=== PATIENT | male | born 1945 | race Caucasian/White ===

== ENCOUNTER 2019-12-26 15:15 | Observation (INO) ==
[2019-12-26 16:13] LABS: Basophils # 0.1 K/mcL (0.0-0.2); Basophils % 0.4 %; Eosinophils # 0.2 K/mcL (0.0-0.6); Eosinophils % 1.8 %; Hematocrit 46.5 % (37.5-50.1); Hemoglobin 15.4 g/dL (12.9-16.9); Immature Granulocytes % 0.4 % (0-4); Lymphocytes # 1.7 K/mcL (0.6-4.6); Lymphocytes % 12.8 %; Mean Corpuscular HGB Conc 33.1 g/dL (31.6-35.5); Mean Corpuscular Hemoglobin 29.6 pg (28.0-33.3); Mean Corpuscular Volume 89.3 fL (83.0-100.0); Mean Platelet Volume 9.9 fL (9.4-12.4); Monocytes # 0.7 K/mcL (0.0-1.3); Monocytes % 4.8 %; Neutrophils # 10.9 K/mcL (1.6-8.9); Platelet Count 181 K/mcL (140-400); Red Blood Count 5.21 M/mcL (4.19-5.50); Red Cell Distribution Width 13.6 % (11.5-14.5); Segmented Neutrophils % 79.8 %; White Blood Count 13.6 K/mcL (4.3-11.1)
[2019-12-26 16:24] LABS: Bilirubin,Urine Negative (Negative); Blood,Urine Small (Negative); Clarity,Urine Clear (Clear); Color,Urine Yellow (Yellow); Glucose,Urine (UA) Normal (Normal); Ketones,Urine Negative (Negative); Leukocyte Esterase,Urine Negative (Negative); Mucus,Urine Few per lpf (None-Few); Nitrite,Urine Negative (Negative); PH,Urine 5.5 pH Units (5.0-8.0); Protein,Urine 200 mg/dL (Neg-Trace); RBC,Urine 0-3 per hpf (0-3); Specific Gravity,Urine 1.023 (1.010-1.025); Squamous Epithelial Cell,Urine Few per hpf (None-Few); Urobilinogen,Urine Normal (Normal); WBC,Urine 0-3 per hpf (0-3)
[2019-12-26 16:35] LABS: Alanine Aminotransferase 13 Units/L (7-52); Albumin 4.2 g/dL (3.5-5.7); Albumin/Globulin Ratio 1.6 (1.1-2.2); Alkaline Phosphatase 145 Units/L (34-104); Aspartate Amino Transferase 18 Units/L (13-39); BUN/Creatinine Ratio 17 (6-26); Bilirubin,Direct 0.2 mg/dL (0.0-0.2); Bilirubin,Indirect 0.5 mg/dL (0.0-1.0); Bilirubin,Total 0.7 mg/dL (0.3-1.0); Blood Urea Nitrogen 23 mg/dL (8-23); Calcium 9.3 mg/dL (8.6-10.3); Carbon Dioxide 24 mEq/L (23-29); Chloride 108 mEq/L (98-107); Globulin 2.6 g/dL (2.4-3.5); Glucose 94 mg/dL (70-105); Osmolality,Calculated 295 (280-300); Potassium 4.3 mEq/L (3.5-5.1); Sodium 141 mEq/L (136-145); Total Protein 6.8 g/dL (6.4-8.9); eGFR For African Americans > 60 (> 60); eGFR For Non-African Americans 51 (> 60)
[2019-12-26 16:36] LABS: Troponin I < 0.03 ng/mL (< 0.04)
[2019-12-26] MEDS ORDERED: NON-FORMULARY MEDICATION 1 EACH EACH (Omega-3s/Dha/Epa/Fish Oil [Fish Oil 1,200 Mg Softgel PO SCH (21:00)
[2019-12-26] MEDS: carvediloL 6.25 MG TABLET PO SCH (21:05)
[2019-12-26] MEDS: Aspirin Enteric Coated 325 MG Tablet PO SCH (21:05)
[2019-12-27 04:25] LABS: INR 1.1; Prothrombin Time 12.4 Seconds (9.4-12.1)
[2019-12-27 04:43] LABS: Alanine Aminotransferase 13 Units/L (7-52); Albumin 3.9 g/dL (3.5-5.7); Albumin/Globulin Ratio 1.7 (1.1-2.2); Alkaline Phosphatase 129 Units/L (34-104); Aspartate Amino Transferase 24 Units/L (13-39); BUN/Creatinine Ratio 18 (6-26); Bilirubin,Total 0.7 mg/dL (0.3-1.0); Blood Urea Nitrogen 24 mg/dL (8-23); Calcium 8.8 mg/dL (8.6-10.3); Carbon Dioxide 24 mEq/L (23-29); Chloride 108 mEq/L (98-107); Chol/HDL Ratio 3.6 (0-4.9); Cholesterol 123 mg/dL (< 200); Globulin 2.3 g/dL (2.4-3.5); Glucose 105 mg/dL (70-105); HDL Cholesterol 34 mg/dL (40-59); LDL Cholesterol,Calculated 48 mg/dL (< 100); Osmolality,Calculated 294 (280-300); Potassium 4.1 mEq/L (3.5-5.1); Sodium 140 mEq/L (136-145); Total Protein 6.2 g/dL (6.4-8.9); Triglycerides 206 mg/dL (< 150); Troponin I < 0.03 ng/mL (< 0.04); eGFR For African Americans > 60 (> 60); eGFR For Non-African Americans 52 (> 60)
[2019-12-27] MEDS: *HR* Heparin 5,000 UNIT/ML VIAL SQ SCH ×3 (05:02→21:50)
[2019-12-27 07:06] LABS: Hematocrit 43.1 % (37.5-50.1); Hemoglobin 14.2 g/dL (12.9-16.9); Mean Corpuscular HGB Conc 32.9 g/dL (31.6-35.5); Mean Corpuscular Hemoglobin 30.3 pg (28.0-33.3); Mean Corpuscular Volume 91.9 fL (83.0-100.0); Mean Platelet Volume 9.8 fL (9.4-12.4); Platelet Count 162 K/mcL (140-400); Red Blood Count 4.69 M/mcL (4.19-5.50); Red Cell Distribution Width 13.9 % (11.5-14.5); White Blood Count 9.9 K/mcL (4.3-11.1)
[2019-12-27 07:58] LABS: Estimated Average Glucose 108 mg/dl
[2019-12-27] MEDS ORDERED: Aspirin 81 MG TAB.CHEW PO SCH (09:00)
[2019-12-27] MEDS ORDERED: Lisinopril-HCTZ 20-12.5mg TABLET PO SCH (09:00)
[2019-12-27] MEDS: Aspirin Enteric Coated 325 MG Tablet PO SCH (09:15)
[2019-12-27] MEDS: carvediloL 6.25 MG TABLET PO SCH ×2 (09:16→17:38)
[2019-12-27] MEDS: Niacin (24 HR) 500 MG TAB.ER.24H PO SCH (09:16)
[2019-12-27] MEDS ORDERED: Perflutren Lipid Microsphere 1.3 ML in 0.9 % Sodium Chloride 8.7 ML IVP PRN (10:44)
[2019-12-27 11:46] LABS: Thyroid Stimulating Hormone 0.629 mcIU/mL (0.340-5.600)
[2019-12-27 11:51] LABS: Prolactin 5.02 ng/mL (3.00-14.70)
[2019-12-27 11:56] LABS: Folate 9.5 ng/mL (3.0-16.0)
[2019-12-27] MEDS: Gabapentin 300 MG CAPSULE PO SCH ×2 (15:45→21:50)
[2019-12-27] MEDS ORDERED: Acetaminophen 325 MG TABLET PO ONE (20:07)
[2019-12-28] MEDS: *HR* Heparin 5,000 UNIT/ML VIAL SQ SCH (06:00)
[2019-12-28 07:07] LABS: Hematocrit 43.7 % (37.5-50.1); Hemoglobin 14.5 g/dL (12.9-16.9); Mean Corpuscular HGB Conc 33.2 g/dL (31.6-35.5); Mean Corpuscular Hemoglobin 30.6 pg (28.0-33.3); Mean Corpuscular Volume 92.2 fL (83.0-100.0); Mean Platelet Volume 10.2 fL (9.4-12.4); Platelet Count 151 K/mcL (140-400); Red Blood Count 4.74 M/mcL (4.19-5.50); Red Cell Distribution Width 13.9 % (11.5-14.5); White Blood Count 7.3 K/mcL (4.3-11.1)
[2019-12-28 07:25] LABS: BUN/Creatinine Ratio 18 (6-26); Blood Urea Nitrogen 23 mg/dL (8-23); Calcium 9.1 mg/dL (8.6-10.3); Carbon Dioxide 24 mEq/L (23-29); Chloride 106 mEq/L (98-107); Glucose 91 mg/dL (70-105); Osmolality,Calculated 293 (280-300); Potassium 3.8 mEq/L (3.5-5.1); Sodium 140 mEq/L (136-145); eGFR For African Americans > 60 (> 60); eGFR For Non-African Americans 55 (> 60)
[2019-12-28] MEDS: Gabapentin 300 MG CAPSULE PO SCH (08:03)
[2019-12-28] MEDS: Aspirin Enteric Coated 325 MG Tablet PO SCH (08:03)
[2019-12-28] MEDS: carvediloL 6.25 MG TABLET PO SCH (08:03)
[2019-12-28] MEDS: Niacin (24 HR) 500 MG TAB.ER.24H PO SCH (08:04)
[2019-12-28 11:31] VITALS: BP 152/65
== END 2019-12-28 12:27 | disposition home or self-care (01) ==
LOC: 3BNU 15:15 → EMEROOARM 15:15 → SUATTDRO 19:33 → 3BNU 20:19
PROVIDERS: ADMIT Pharmacist; ATTEND Internal Medicine